=== PATIENT | female | born 1995 | race American Indian/Alaskan Native ===

== ENCOUNTER 2018-07-21 12:41 | Emergency (ER) | payer MEDICAID, OTHER ==
--- NOTE | 2018-07-21 13:32 | Emergency Department Report ---
Blank Doc - Documentation Documentation: This is a 23-year-old female that presents with chest pain. Denies any SOB. Stated has similar symptoms in the past. This initial assessment/diagnostic orders/clinical plan/treatment(s) is/are subject to change based on patient's health status, clinical progression and re-assessment by fellow clinical providers in the ED. Further treatment and workup at subsequent clinical providers discretion. Patient/guardians urged not to elope from the ED as their condition may be serious if not clinically assessed and managed. Initial orders include: 1- Patient sent to [facility] for further evaluation and treatment 2- labs 3- EKG 4- CXR
--- NOTE | 2018-07-21 14:20 | XRay Report ---
ROUTINE CHEST, TWO VIEWS: Chest pain PA and lateral views demonstrate the heart and mediastinal contour to be of normal size and shape. The lungs are clear and fully expanded and the soft tissues and bony structures are normal. IMPRESSION: Normal study.
--- NOTE | 2018-07-21 16:25 | Emergency Department Report ---
ED Chest Pain HPI - General Chief Complaint: Chest Pain Stated Complaint: CHEST PAIN Time Seen by Provider: 07/21/18 13:30 Source: patient Mode of arrival: Ambulatory Limitations: No Limitations - History of Present Illness Initial Comments: Sustained 23 year-old female who presents with chest pain that started this morning. Patient reports pain is a tightness to center chest. She reports a history of chest discomfort for the past year. Past medical history of diabetes and hypertension. Patient states she no longer having insurance and unable to follow up with the primary care doctor. She is currently taking lisinopril but refused to take metformin. She denies nausea or vomiting, dizziness, numbness or tingling, radiating pain, edema, wheezing, or shortness of breath. MD Complaint: chest pain -: This morning Onset: awoke with symptoms Pain Location: substernal Pain Radiation: none Severity: moderate Severity scale (0 -10): 7 Quality: tightness Consistency: intermittent Improves With: nothing Worsens With: nothing re: denies: nausea, vomting, diaphoresis, dyspnea, sense of impending doom Other Symptoms: denies: cough, fever, syncope, rash, acid taste in mouth, leg swelling, palpitations, burping Treatments Prior to Arrival: none Aspirin use within the Past 7 Days: (0) No - Related Data On Oral Contraceptives: No Home Medications Medication Instructions Recorded Confirmed Last Taken metFORMIN [Glucophage] 500 mg PO BID 05/26/13 05/26/13 04/26/13 Allergies Allergy/AdvReac Type Severity Reaction Status Date / Time No Known Allergies Allergy Unverified 05/26/13 15:32 Heart Score - HEART Score History: Slightly suspicious EKG: Normal Age: < 45 Risk factors: 1-2 risk factors Troponin: < normal limit HEART Score: 1 - Critical Actions Critical Actions: 0-3 pts:0.9-1.7%risk of adverse cardiac event.Candidate for discharge ED Review of Systems ROS: Stated complaint: CHEST PAIN Other details as noted in HPI Constitutional: denies: chills, fever Respiratory: denies: cough, shortness of breath, wheezing Cardiovascular: chest pain. denies: palpitations Gastrointestinal: denies: abdominal pain, nausea, diarrhea Musculoskeletal: denies: back pain, joint swelling, arthralgia Skin: denies: rash, lesions Neurological: denies: headache, weakness, paresthesias Psychiatric: denies: anxiety, depression ED Past Medical Hx - Past Medical History Hx Hypertension: Yes Hx Diabetes: Yes Additional medical history: hormone imbalance, right arm fracture, kidney reflux, partial hearing loss left ear. - Surgical History Past Surgical History?: No - Social History Smoking Status: Never Smoker Substance Use Type: Alcohol - Medications Home Medications: Home Medications Medication Instructions Recorded Confirmed Last Taken Type metFORMIN [Glucophage] 500 mg PO BID 05/26/13 05/26/13 04/26/13 History ED Physical Exam - General Limitations: No Limitations General appearance: alert, in no apparent distress, obese (morbidly obese) - Respiratory Respiratory exam: Present: normal lung sounds bilaterally. Absent: respiratory distress, wheezes, rales, rhonchi, stridor, chest wall tenderness - Cardiovascular Cardiovascular Exam: Present: regular rate, normal rhythm. Absent: systolic murmur, diastolic murmur, rubs, gallop - GI/Abdominal GI/Abdominal exam: Present: soft, normal bowel sounds. Absent: distended, tenderness, guarding, rebound, rigid, organomegaly, mass, bruit, pulsatile mass, hernia - Neurological Exam Neurological exam: Present: alert, oriented X3 - Psychiatric Psychiatric exam: Present: normal affect, normal mood - Skin Skin exam: Present: warm, dry, intact, normal color. Absent: rash ED Course Vital Signs 07/21/18 13:31 Temperature 98.1 F Pulse Rate 80 Respiratory 20 Rate Blood Pressure 174/93 O2 Sat by Pulse 98 Oximetry ED Medical Decision Making - Lab Data Lab Results 07/21/18 Range/Units 13:53 Troponin T < 0.010 (0.00-0.029) ng/mL - EKG Data -: No EKG Interpreted by Me (EKG interpreted by attending) EKG shows normal: sinus rhythm Rate: normal - Radiology Data Radiology results: report reviewed ROUTINE CHEST, TWO VIEWS: Chest pain PA and lateral views demonstrate the heart and mediastinal contour to be of normal size and shape. The lungs are clear and fully expanded and the soft tissues and bony structures are normal. IMPRESSION: Normal study. - Medical Decision Making This is a 23 y.o. female that presents with chest pain since this morning. History of HTN and diabetes. Patient is stable and was examined by me. Obtain troponin, chest x-ray, EKG. All labs unremarkable. EKG interpreted by the attending, sinus rhythm. Heart score 1. Unlikely ME. Referral to entry operator and primary care provider for continued care. Discussed plan with patient and agreed to plan. No further questions noted by the patient. Discharged home in stable condition. Follow up with PCP in 1 week. Critical care attestation.: If time is entered above; I have spent that time in minutes in the direct care of this critically ill patient, excluding procedure time. ED Disposition Clinical Impression: Chest pain Qualifiers: Chest pain type: unspecified Qualified Code(s): R07.9 - Chest pain, unspecified Disposition: - TO HOME OR SELFCARE Is pt being admited?: No Does the pt Need Aspirin: No Condition: Stable Instructions: Chest Pain (ED) Additional Instructions: Follow-up with her primary care provider from the list below. Follow-up with her entry operator from the referral list below. Return to the emergency room if increased pain, nausea or vomiting, dizziness, or radiating pain. Referrals: LUIS A DIOR MD [Primary Care Provider] - 3-5 Days [facility] [Provider Group] - 3-5 Days [facility] [Outside] - 3-5 Days [facility] [Outside] - 3-5 Days [facility] [Outside] - 3-5 Days Forms: Work/School Release Form(ED) Time of Disposition: 16:38
[2018-07-21 16:57] VITALS: BP 137/86
== END 2018-07-21 16:54 | disposition home or self-care (01) ==
LOC: ED 12:41
DX: R07.9 Chest pain, unspecified (principal); I10 Essential (primary) hypertension; E11.9 Type 2 diabetes mellitus without complications
CPT/HCPCS: 36415; 71046; 84484; 93005; 93010

== ENCOUNTER 2019-08-14 11:27 | Emergency (ER) | payer OTHER ==
[2019-08-14 11:38] VITALS: BP 157/80
--- NOTE | 2019-08-14 11:43 | Emergency Department Report ---
Minor Respiratory - HPI Chief Complaint: Upper Respiratory Infection Stated Complaint: CHEST, THROAT PAIN Time Seen by Provider: 08/14/19 11:43 Pain Location: Chest Severity: mild Minor Respiratory: Yes Able to Tolerate Fluids, Yes Chest Pain, No Rhinorrhea, No Sore Throat, No Ear Pain, No Cough, No Sick Contacts, No Hemoptysis, No Shortness of Breath, No Fever Other History: 24 YO AA FEMALE COMES TO ER WITH CO CP- SHE IS CONCERNED BECAUSE HER SISTER JUST HAD COVID TEST. SHE DOES NOT KNOW IF POS OR NEG. NO FEVER. NO COUGH. NO SOB. NO FEVER OR CHILLS. DOES ENDORSE SORE THROAT AT TIMES. SHE STATES SHE HAS HAD PAIN FOR WEEKS. DID NOT SEE PCP. HX HTN. MILD ELEVATION BP IN ER. ON LISINOPRIL AND MIGAINE MED. CHEST XRAY TO RO PNA ED Review of Systems ROS: Stated complaint: CHEST, THROAT PAIN Other details as noted in HPI Comment: All other systems reviewed and negative ED Past Medical Hx - Past Medical History Previous Medical History?: Yes Hx Hypertension: Yes Hx Diabetes: Yes Additional medical history: hormone imbalance, right arm fracture, kidney reflux, partial hearing loss left ear. - Surgical History Past Surgical History?: No - Family History Family history: no significant - Social History Smoking Status: Never Smoker Substance Use Type: None Minor Respiratory Exam - Exam General: Vital signs noted. No distress. Alert and acting appropriately. HEENT: Yes Moist Mucous Membranes, No Pharyngeal Erythema, No Pharyngeal Exudates, No Rhinorrhea, No Conjuctival Injection, No Frontal Tenderness, No Maxillary Tenderness Ear: Neither TM Bulge, Neither TM Erythema, Neither EAC Pain, Neither EAC Discharge Neck: Yes Supple, No Adenopathy Lungs: Yes Good Air Exchange, No Wheezes, No Ronchi, No Stridor, No Cough, No Labored Respirations, No Retractions, No Use of Accessory Muscles, No Other Abnormal Lung Sounds Heart: Yes Regular, No Murmur Abdomen: Yes Normal Bowel Sounds, No Tenderness, No Peritoneal Signs Skin: No Rash, No Edema Neurologic: Alert and oriented, no deficits. Musculoskeletal: Unremarkable. ED Course Vital Signs 08/14/19 11:34 Temperature 98.5 F Pulse Rate 91 H Respiratory 20 Rate Blood Pressure 157/80 O2 Sat by Pulse 98 Oximetry ED Medical Decision Making - Radiology Data Radiology results: report reviewed, image reviewed - Medical Decision Making XRAY NEG FOR ACUTE PROCESS VSS PT REASSURED PT DC HOME WITH DC POC AND PCP FOLLOW UP PT EDUCATED ON COVID S/S AND WHEN TO COME TO ER. ALSO EDUCATED ON MONITORING HER BP. Vital Signs 08/14/19 11:34 Temperature 98.5 F Pulse Rate 91 H Respiratory 20 Rate Blood Pressure 157/80 O2 Sat by Pulse 98 Oximetry - Differential Diagnosis RO PNA/COVID/URTI/ALLERGIES Critical care attestation.: If time is entered above; I have spent that time in minutes in the direct care of this critically ill patient, excluding procedure time. ED Disposition Clinical Impression: URTI (acute upper respiratory infection), History of hypertension, Obese Disposition: DC-01 TO HOME OR SELFCARE Is pt being admited?: No Does the pt Need Aspirin: No Condition: Stable Additional Instructions: OVER THE COUNTER SIGN AND SYMPTOM RELIEF MOTRIN OR TYLENOL FOR FEVER OR PAIN FOLLOW UP WITH PCP REFERRAL BELOW CONTINUE HOME MEDS Referrals: GABRIELA ABREU MD [Primary Care Provider] - 3-5 Days LUIS A DIOR MD [Staff Physician] - 3-5 Days Time of Disposition: 12:12
--- NOTE | 2019-08-14 12:11 | XRay Report ---
CHEST 2 VIEWS INDICATION: sob. COMPARISON: 07/21/2018 FINDINGS: Support devices: None. Heart: Within normal limits. Lungs/pleura: No acute air space or interstitial disease. No pneumothorax. Additional findings: None. IMPRESSION: Unremarkable chest films. No change since 07/21/2018. Signer Name: Shan Akers Jr, MD Signed: 08/14/2019 12:06 PM Workstation Name: [id number]
== END 2019-08-14 12:30 | disposition home or self-care (01) ==
LOC: ED 11:27
DX: J06.9 Acute upper respiratory infection, unspecified (principal); I10 Essential (primary) hypertension; E11.9 Type 2 diabetes mellitus without complications
CPT/HCPCS: 71046